=== PATIENT | male | born 1960 | race Caucasian/White ===

== ENCOUNTER 2022-06-17 21:44 | Emergency (ER) | payer SELFPAY ==
[~2022-06-17] VITALS: Ht 182.9 cm; Wt 94.6 kg
[2022-06-17 21:46] VITALS: BP 149/92
[2022-06-18] MEDS ORDERED: INDO-12 PO (23:46)
[2022-06-18] MEDS ORDERED: HYDR-3686 PO (23:46)
[2022-06-18] MEDS ORDERED: LISI20TA28 PO (23:46)
== END 2022-06-18 01:51 | disposition left against medical advice (07) ==
LOC: ER 21:46
DX: E11.65 Type 2 diabetes mellitus with hyperglycemia (principal); Z53.21 Procedure and treatment not carried out due to patient leaving prior to being seen by health care provider
CPT/HCPCS: 82948; 99281

== ENCOUNTER 2022-06-18 23:24 | Emergency (ER) | payer MEDICAID ==
[~2022-06-18] VITALS: Ht 182.9 cm; Wt 95.4 kg
[2022-06-18 23:33] VITALS: BP 135/87
[2022-06-18] MEDS ORDERED: LORazepam 1 MG tablet PO ONE (23:45)
[2022-06-18] MEDS ORDERED: ketorolac tromethamine 15mg/ml inj. IM ONE (23:45)
[2022-06-18] MEDS ORDERED: HYDR-3686 PO (23:46)
[2022-06-18] MEDS ORDERED: LISI20TA28 PO (23:46)
[2022-06-18] MEDS ORDERED: INDO-12 PO (23:46)
== END 2022-06-19 00:01 | disposition home or self-care (01) ==
LOC: ER 23:25
DX: F41.9 Anxiety disorder, unspecified (principal); I10 Essential (primary) hypertension; Z79.899 Other long term (current) drug therapy
CPT/HCPCS: 82948; 96372; 99283; J1885

== ENCOUNTER 2022-06-19 17:01 | Emergency (ER) | payer MEDICAID ==
[~2022-06-19] VITALS: Ht 188 cm; Wt 100.0 kg
[~2022-06-19 17:01] MED LIST: HYDR-3686 PO; INDO-12 PO; LISI20TA28 PO
[2022-06-19 17:18] VITALS: BP 145/101
[2022-06-19] MEDS ORDERED: LORazepam 1 MG tablet PO ONE (17:30)
== END 2022-06-19 18:15 | disposition home or self-care (01) ==
LOC: ER 17:01
DX: F41.9 Anxiety disorder, unspecified (principal); Z79.899 Other long term (current) drug therapy
CPT/HCPCS: 99281; 99283

== ENCOUNTER 2023-04-24 15:48 | Emergency (ER) | payer MEDICAID ==
[~2023-04-24] VITALS: Ht 182.9 cm; Wt 94.1 kg
[~2023-04-24 15:48] MED LIST changes: -HYDR-3686 PO; -LISI20TA28 PO
[2023-04-24 15:59] VITALS: BP 179/86; PULSE 92; O2SAT 96
[2023-04-24] MEDS ORDERED: INDO50CA96 PO (16:08)
[2023-04-24] MEDS ORDERED: COLC0.6C3 PO (16:08)
[2023-04-24] MEDS: dexamethasone sod phosphate 10mg/ml inj IM STA (16:21)
[2023-04-24 16:44] VITALS: RESP 18
[2023-04-24] MEDS: ketorolac tromethamine 15mg/ml inj. IM ONE (16:44)
== END 2023-04-24 17:17 | disposition home or self-care (01) ==
LOC: ER 15:48
DX: M10.9 Gout, unspecified (principal); Z88.8 Allergy status to other drugs, medicaments and biological substances; Z79.899 Other long term (current) drug therapy
CPT/HCPCS: 96372; 99284; J1100; J1885

== ENCOUNTER 2023-06-03 13:45 | Emergency (ER) | payer MEDICAID ==
[~2023-06-03] VITALS: Ht 182.9 cm; Wt 94.2 kg
[~2023-06-03 13:45] MED LIST changes: +COLC0.6C3 PO; +INDO50CA96 PO
[2023-06-03 13:46] VITALS: BP 123/92; PULSE 90; RESP 16; TEMP 98; O2SAT 97
[2023-06-03] MEDS ORDERED: AMOX-580 PO (16:07)
[2023-06-03] MEDS: amox tr/potassium clavulanate 875/125mg TAB PO ONE (16:18)
== END 2023-06-03 16:38 | disposition home or self-care (01) ==
LOC: ER 13:46
DX: J01.90 Acute sinusitis, unspecified (principal); H53.8 Other visual disturbances; H57.12 Ocular pain, left eye; Z88.8 Allergy status to other drugs, medicaments and biological substances; Z79.899 Other long term (current) drug therapy
CPT/HCPCS: 99283

== ENCOUNTER 2023-07-13 01:30 | Emergency (ER) | payer MEDICAID ==
[~2023-07-13] VITALS: Ht 182.9 cm; Wt 95.5 kg
[2023-07-13 01:48] VITALS: TEMP 97.9
[2023-07-13] MEDS ORDERED: INDO50CA96 PO (02:04)
[2023-07-13] MEDS ORDERED: COLC0.6T72 PO (02:04)
[2023-07-13] MEDS: colchicine 0.6mg tablet PO ONE (02:19)
[2023-07-13] MEDS: dexamethasone sod phosphate 10mg/ml inj IM STA (02:19)
[2023-07-13 02:22] VITALS: BP 134/97; PULSE 101; RESP 18; O2SAT 98
== END 2023-07-13 02:23 | disposition home or self-care (01) ==
LOC: ER 01:30
DX: Z79.899 Other long term (current) drug therapy (principal); M10.9 Gout, unspecified
CPT/HCPCS: 96372; 99283; J1100

== ENCOUNTER 2023-09-10 23:48 | Emergency (ER) | payer MEDICAID ==
[~2023-09-10] VITALS: Ht 182.9 cm; Wt 91.5 kg
[~2023-09-10 23:48] MED LIST changes: +COLC0.6T72 PO
[2023-09-11 00:07] VITALS: BP 153/89; PULSE 90; RESP 15; TEMP 98; O2SAT 98
[2023-09-11] MEDS ORDERED: INDO50CA96 PO (00:21)
[2023-09-11] MEDS ORDERED: HYDR-3965 PO (00:21)
[2023-09-11] MEDS ORDERED: COLC0.6C3 PO (00:22)
[2023-09-11] MEDS: insulin regular, human 10 units/0.1 ml syringe SQ ONE (00:50)
[2023-09-11] MEDS: methylPREDNISolone sod succ/PF 40mg inj. IM SCH (00:50)
== END 2023-09-11 00:59 | disposition home or self-care (01) ==
LOC: ER 23:48
DX: M10.9 Gout, unspecified (principal); Z79.899 Other long term (current) drug therapy
CPT/HCPCS: 82948; 96372; 99283; J2919

== ENCOUNTER 2024-01-29 03:59 | Emergency (ER) | payer MEDICAID ==
[~2024-01-29] VITALS: Ht 182.9 cm; Wt 91.8 kg
[2024-01-29 05:44] LABS: BASOPHILS # (AUTO) 0.1 X10'3 (0-0.2); BASOPHILS % (AUTO) 1.1 % (0-1); EOSINOPHILS # (AUTO) 0.4 X10'3 (0-0.9); EOSINOPHILS % (AUTO) 3.9 % (0-6); HEMATOCRIT 48.1 % (42.0-52.0); HEMOGLOBIN 16.5 g/dl (14.0-17.9); LYMPHOCYTES % (AUTO) 30.9 % (21-51); MEAN CORPUSCULAR HGB CONC 34.3 g/dL (33.0-36.5); MEAN CORPUSCULAR VOLUME 84.5 FL (78-98); MEAN PLATELET VOLUME 9.8 FL (7.4-10.4); MONOCYTES % (AUTO) 10.4 % (2-12); NEUTROPHILS # (AUTO) 5.2 X10'3 (1.8-7.7); NEUTROPHILS % (AUTO) 53.7 % (42-75); PLATELET COUNT 283 X10'3 (140-440); RED BLOOD COUNT 5.69 X10'6 (4.70-6.10); RED CELL DISTRIBUTION WIDTH 13.7 % (11.5-14.5); WHITE BLOOD COUNT 9.7 X10'3 (4.5-11.0)
[2024-01-29] MEDS ORDERED: amox tr/potassium clavulanate 875/125mg TAB PO ONE (05:45)
[2024-01-29 05:51] LABS: ALANINE AMINOTRANSFERASE 12 U/L (12-78); ALBUMIN/GLOBULIN RATIO 0.7 (1.1-1.5); ALKALINE PHOSPHATASE 121 IU/L (46-116); ANION GAP 7 (8-16); ASPARTATE AMINO TRANSFERASE 10 U/L (10-37); BILIRUBIN,TOTAL 0.8 MG/DL (0.1-1.0); BLOOD UREA NITROGEN 14 MG/DL (7-18); BUN/CREATININE RATIO 10.3 (10.0-20.0); CALCIUM 9.2 MG/DL (8.5-10.1); CHLORIDE 98 MMOL/L (99-107); CREATININE 1.36 MG/DL (0.60-1.10); GLUCOSE 388 MG/DL (70-104); POTASSIUM 3.9 MMOL/L (3.5-5.1); SODIUM 135 MMOL/L (135-145); TOTAL CARBON DIOXIDE 29.9 MMOL/L (24-32); TOTAL PROTEIN 7.4 G/DL (6.4-8.2); eCRCL 62 ML/MIN; eGFR 53 ML/MIN
[2024-01-29] MEDS ORDERED: AMOX-580 PO (05:54)
[2024-01-29] MEDS ORDERED: METF-1203 PO (05:54)
[2024-01-29] MEDS ORDERED: LISI10TA27 PO (05:58)
[2024-01-29 06:06] VITALS: BP 143/96; PULSE 99; RESP 16; TEMP 98.1; O2SAT 100
== END 2024-01-29 06:05 | disposition home or self-care (01) ==
LOC: ER 04:00
DX: E11.42 Type 2 diabetes mellitus with diabetic polyneuropathy (principal); E11.65 Type 2 diabetes mellitus with hyperglycemia; J32.9 Chronic sinusitis, unspecified; F12.90 Cannabis use, unspecified, uncomplicated; K21.9 Gastro-esophageal reflux disease without esophagitis
CPT/HCPCS: 80053; 82948; 85025; 99283

== ENCOUNTER 2024-04-18 00:55 | Emergency (ER) | payer MEDICAID ==
[~2024-04-18] VITALS: Ht 182.9 cm; Wt 91.4 kg
[~2024-04-18 00:55] MED LIST changes: +LISI10TA27 PO
[2024-04-18 00:58] VITALS: BP 152/99; PULSE 112; RESP 16; TEMP 98; O2SAT 100
[2024-04-18] MEDS ORDERED: OMEP40CA21 PO (01:51)
[2024-04-18] MEDS ORDERED: FLUT16SP2 BOTHNARES (01:51)
[2024-04-18] MEDS: pantoprazole 40mg Tablet.DR PO STA (02:15)
[2024-04-18] MEDS: ibuprofen tablet 400 MG TABLET PO ONE (02:15)
[2024-04-18] MEDS ORDERED: pantoprazole 40mg Tablet.DR PO SCH (07:30)
== END 2024-04-18 02:21 | disposition home or self-care (01) ==
LOC: ER 00:56
DX: K21.9 Gastro-esophageal reflux disease without esophagitis (principal); M10.9 Gout, unspecified; E11.9 Type 2 diabetes mellitus without complications; M19.90 Unspecified osteoarthritis, unspecified site; Z79.899 Other long term (current) drug therapy
CPT/HCPCS: 99283

== ENCOUNTER 2024-05-14 23:10 | Emergency (ER) | payer MEDICAID ==
[~2024-05-14] VITALS: Ht 182.9 cm; Wt 100.0 kg
[~2024-05-14 23:10] MED LIST changes: +FLUT16SP2 BOTHNARES; +OMEP40CA21 PO
[2024-05-15] MEDS: acetaminophen 325mg tablet PO ONE (02:46)
[2024-05-15] MEDS: ketorolac trometh 15mg/ml vial 15 MG/ML ML IM ONE (02:47)
[2024-05-15] MEDS ORDERED: COLC0.6C3 PO (02:51)
[2024-05-15] MEDS ORDERED: INDO50CA96 PO (02:51)
[2024-05-15] MEDS ORDERED: ACET-2615 PO (02:51)
[2024-05-15] MEDS: triamcinolone acetonide 40mg/ml inj IM ONE (02:57)
[2024-05-15 03:02] VITALS: BP 132/86; PULSE 80; RESP 18; TEMP 98.9; O2SAT 99
== END 2024-05-15 03:04 | disposition home or self-care (01) ==
LOC: ER 23:10
DX: M10.9 Gout, unspecified (principal); E11.9 Type 2 diabetes mellitus without complications; M19.90 Unspecified osteoarthritis, unspecified site; F12.90 Cannabis use, unspecified, uncomplicated
CPT/HCPCS: 96372; 99284; J1885; J3301

== ENCOUNTER 2024-07-30 11:41 | Emergency (ER) | payer MEDICAID ==
[~2024-07-30] VITALS: Ht 182.9 cm; Wt 71.9 kg
[~2024-07-30 11:41] MED LIST changes: -OMEP40CA21 PO
[2024-07-30 11:42] VITALS: TEMP 97.4
[2024-07-30 14:13] LABS: BASOPHILS # (AUTO) 0.1 X10'3 (0-0.2); EOSINOPHILS # (AUTO) 0.3 X10'3 (0-0.9); EOSINOPHILS % (AUTO) 4.1 % (0-6); HEMATOCRIT 51.8 % (42.0-52.0); HEMOGLOBIN 17.3 g/dl (14.0-17.9); LYMPHOCYTES # (AUTO) 2.2 X10'3 (1.1-4.8); LYMPHOCYTES % (AUTO) 27.8 % (21-51); MEAN CORPUSCULAR HEMOGLOBIN 28.2 PG (27.0-31.0); MEAN CORPUSCULAR HGB CONC 33.4 g/dL (33.0-36.5); MEAN CORPUSCULAR VOLUME 84.6 FL (78-98); MONOCYTES # (AUTO) 0.6 X10'3 (0-0.9); MONOCYTES % (AUTO) 7.9 % (2-12); NEUTROPHILS # (AUTO) 4.7 X10'3 (1.8-7.7); NEUTROPHILS % (AUTO) 59.2 % (42-75); PLATELET COUNT 274 X10'3 (140-440); RED BLOOD COUNT 6.12 X10'6 (4.70-6.10); RED CELL DISTRIBUTION WIDTH 14.7 % (11.5-14.5)
[2024-07-30 14:21] LABS: ALANINE AMINOTRANSFERASE 18 U/L (12-78); ALBUMIN 3.4 G/DL (3.4-5.0); ALBUMIN/GLOBULIN RATIO 0.8 (1.1-1.5); ALKALINE PHOSPHATASE 106 IU/L (46-116); ANION GAP 6 (8-16); ASPARTATE AMINO TRANSFERASE 11 U/L (10-37); BILIRUBIN,TOTAL 1.2 MG/DL (0.1-1.0); BLOOD UREA NITROGEN 13 MG/DL (7-18); BUN/CREATININE RATIO 11.4 (10.0-20.0); CALCIUM 8.6 MG/DL (8.5-10.1); CHLORIDE 102 MMOL/L (99-107); CREATININE 1.14 MG/DL (0.60-1.10); GLUCOSE 251 MG/DL (70-104); POTASSIUM 4.5 MMOL/L (3.5-5.1); SODIUM 136 MMOL/L (135-145); TOTAL CARBON DIOXIDE 28.3 MMOL/L (24-32); TOTAL PROTEIN 7.7 G/DL (6.4-8.2); eCRCL 67 ML/MIN; eGFR 65 ML/MIN
--- NOTE | 2024-07-30 14:25 | RADIOLOGY REPORT ---
CLINICAL INDICATION: Pain; Infection TECHNIQUE: 1 radiographic views of the left tibia/fibula were obtained. Comparison: None FINDINGS/IMPRESSION: There is no evidence of acute fracture or dislocation. The visualized joint space is well maintained. The alignment is anatomical. There is no radiopaque foreign body.
--- NOTE | 2024-07-30 14:32 | Physician Documentation ---
History of Present Illness General Chief Complaint: Wound Stated Complaint: LEG INFECTION X1 YEAR Time Seen by MD: 13:50 Primary Medical Doctor: maricel History of Present Illness Initial Comments 64-year-old male with known history of diabetes presents to the emergency department for evaluation of left lower leg wound that he has had for one year. Reports he has not had physician primary care follow up for some time and does not take any medications for his diabetes. Believes his blood sugar to be 282. No polyuria, polydipsia or fevers reported. The lower leg lesion has a proximally 1/2 cm x 1-1/2 cm ulceration with purulent discharge. There was no lymphangitis. No difficulty with dorsiflexion and plantar flexion. Medication Reconciliation Allergies: Coded Allergies: No Known Allergies (Unverified , 05/14/24) Scheduled Cephalexin*Monohydrate* (Keflex*), 1 CAP PO TID Colchicine (Colchicine), 1 CAP PO Q12H Colchicine (Colchicine), 1 TAB PO DAILY Colchicine (Colchicine), 1 CAP PO DAILY Colchicine (Colchicine), 1 CAP PO Q12H Fluticasone Propionate (Flonase), 2 SPRAYS BOTHNARES DAILY Indomethacin (Indomethacin), 1 CAP PO Q8H Indomethacin (Indomethacin), 1 CAP PO Q8H Indomethacin (Indomethacin), 1 CAP PO Q8H Indomethacin (Indomethacin), 1 CAP PO Q8H Indomethacin (Indomethacin), 1 CAP PO Q8H Lisinopril (Lisinopril), 1 TAB PO DAILY Sulfamethoxazole/Trimethoprim (Bactrim Ds Tablet), 1 TAB PO Q12H Past Medical History Past Medical History: Diabetes, Arthritis, Gout Past Surgical History: no surgical history Smoking: Non-Smoker Drug Use: marijuana Lives In: Home Review of Systems All Other Systems at this time: Reviewed and Negative Constitutional: Denies: fever, chills Integ: Reports: lesions Integumentary Left lower leg Physical Exam Physical Exam Vital Signs: RN Vital Signs have been reviewed: Yes, Temperature: 97.4, Source: Temporal, Heart Rate: 77, Respiratory Rate: 12, BP: 134/83, Pulse Oximetry: 98, Weight: 71.900 Oxygen Flow Rate: 0 General Appearance: alert, WD/WN, mild distress Head: normal inspection Face: normal inspection Pupils/EOM/Fundus: PERRLA Respiratory: no respiratory distress Chest: no accessory muscle use, accessory muscle use Cardiovascular: regular rate, rhythm Back: normal inspection Extremities: non-tender Neurologic: oriented x4, tourist home keeper II-XII nml as tested Motor / Sensory: no motor deficit Skin: normal color Skin 1-1/2 and a half ulceration to the anterior distal tibia with mild erythema and purulent discharge Lymphatic: no adenopathy Progress Results/Orders Results/Orders Orders - BLAKE MILLER PAC Tib/Fib (07/30/24 14:11) * Additional Wound Care Orders (07/30/24 13:58) Completed Orders - BLAKE MILLER PAC Cbc/Diff (07/30/24 13:58) CMP (07/30/24 13:58) Tib/Fib (07/30/24 14:11) Vital Signs 07/30/24 07/30/24 11:42 13:47 Temp 97.4 Pulse 84 77 Resp 15 12 B/P (MAP) 129/96 134/83 (100) Pulse Ox 99 98 O2 Flow Rate 0 Laboratory Tests Test 07/30/24 13:43 07/30/24 13:44 Glucometer 282 H White Blood Count 8.0 Red Blood Count 6.12 H Hemoglobin 17.3 Hematocrit 51.8 Mean Corpuscular Volume 84.6 Mean Corpuscular Hemoglobin 28.2 Mean Corpuscular Hemoglobin Concent 33.4 Red Cell Distribution Width 14.7 H Platelet Count 274 Mean Platelet Volume 10.0 Neutrophils (%) (Auto) 59.2 Lymphocytes (%) (Auto) 27.8 Monocytes (%) (Auto) 7.9 Eosinophils (%) (Auto) 4.1 Basophils (%) (Auto) 1.0 Neutrophils # (Auto) 4.7 Lymphocytes # (Auto) 2.2 Monocytes # (Auto) 0.6 Eosinophils # (Auto) 0.3 Basophils # (Auto) 0.1 CBC Comment Sodium Level 136 Potassium Level 4.5 Chloride Level 102 Carbon Dioxide Level 28.3 Anion Gap 6 L Blood Urea Nitrogen 13 Creatinine 1.14 H Estimated GFR/1.73 m2 65 BUN/Creatinine Ratio 11.4 Glucose Level 251 H Calcium Level 8.6 Total Bilirubin 1.2 H Aspartate Amino Transf (AST/SGOT) 11 Alanine Aminotransferase (ALT/SGPT) 18 Alkaline Phosphatase 106 Total Protein 7.7 Albumin 3.4 Globulin 4.3 Albumin/Globulin Ratio 0.8 L Chemistry Comments Medical Decision Making Differential Diagnosis 64-year-old noncompliant diabetic with lower leg diabetic ulcer requires x-ray imaging to evaluate for gas, foreign body or osteomyelitis. Laboratory screening. Plan is to set patient up with outpatient and follow up for his diabetes. Begin on metformin and provide antibiotic coverage. He will be given wound care dressing instructions. Departure Disposition: HOME / SELF CARE / HOMELESS Impression: Primary Impression: Diabetic ulcer of lower extremity Condition: Stable Discharge Instructions: How to Change Your Wound Dressing Additional Instructions: Today in the emergency department you had x-rays obtained which were reassuring. Please begin antibiotics as directed and diabetic medication. Make follow up appointment with the [facility] for further diabetic management. Do dressing changes as instructed. Referrals: NO PRIMARY CARE PROVIDER (PCP) Prescriptions Metformin Hcl (METFORMIN HCL) 500 Mg Tablet 1 TAB PO Q12H for 30 Days, #60 TAB 0 Refills Prov: BLAKE MILLER 07/30/24 Cephalexin*Monohydrate* (Keflex*) 500 Mg Capsule 1 CAP PO TID, #30 CAP Prov: BLAKE MILLER 07/30/24 Sulfamethoxazole/Trimethoprim (Bactrim Ds Tablet) 800 Mg-160 Mg Tablet 1 TAB PO Q12H for 10 Days, #20 TAB Prov: BLAKE MILLER 07/30/24 Education Educated: Patient Educated regarding: diagnosis, treatment Signature Scribe Signature: . Attestation: BLAKE RAMIREZ Jul 30, 2024 14:32
[2024-07-30] MEDS ORDERED: CEPH-585 PO (14:36)
[2024-07-30] MEDS ORDERED: SULF1TAB49 PO (14:36)
[2024-07-30] MEDS ORDERED: METF-436 PO (14:55)
[2024-07-30 15:29] VITALS: BP 164/99; PULSE 96; RESP 20; O2SAT 99
== END 2024-07-30 15:43 | disposition home or self-care (01) ==
LOC: ER 11:41
DX: E11.622 Type 2 diabetes mellitus with other skin ulcer (principal); L97.929 Non-pressure chronic ulcer of unspecified part of left lower leg with unspecified severity; M19.90 Unspecified osteoarthritis, unspecified site; F12.90 Cannabis use, unspecified, uncomplicated; Z79.899 Other long term (current) drug therapy
CPT/HCPCS: 36415; 73590; 80053; 82948; 85025; 87070; 87077; 87186; 99284; A6449

== ENCOUNTER 2024-10-20 01:04 | Emergency (ER) | payer MEDICAID ==
[~2024-10-20] VITALS: Ht 182.9 cm; Wt 90.9 kg
[~2024-10-20 01:04] MED LIST changes: +CEPH-585 PO; +METF-436 PO
[2024-10-20 01:14] VITALS: BP 132/91; PULSE 90; RESP 20; TEMP 97.9; O2SAT 99
== END 2024-10-20 02:57 | disposition left against medical advice (07) ==
LOC: ER 01:04
DX: F41.9 Anxiety disorder, unspecified (principal); Z53.21 Procedure and treatment not carried out due to patient leaving prior to being seen by health care provider

== ENCOUNTER 2024-11-21 04:33 | Emergency (ER) | payer MEDICAID ==
[~2024-11-21] VITALS: Ht 182.9 cm; Wt 85.0 kg
[2024-11-21 04:34] VITALS: TEMP 97
[2024-11-21] MEDS ORDERED: INDO-12 PO (05:14)
[2024-11-21] MEDS ORDERED: COLC0.6C3 PO (05:14)
[2024-11-21] MEDS ORDERED: IBUP-1984 PO (05:14)
--- NOTE | 2024-11-21 05:15 | Physician Documentation ---
History of Present Illness ~ Chief Complaint: Hand pain Stated Complaint: GOUT Time Seen by MD: 05:07 Primary Medical Doctor: maricel ADAMS Patient presents to the emergency room with reported gout flare to his left hand and wrist. History of gout and states this feels similar. He ran out of his indomethacin. No fevers or traumas reported. Tetanus within 5 years: No Medication Reconciliation Allergies: Coded Allergies: No Known Allergies (Unverified , 11/21/24) Scheduled Cephalexin*Monohydrate* (Keflex*), 1 CAP PO TID Colchicine (Colchicine), 1 CAP PO Q12H Colchicine (Colchicine), 1 TAB PO DAILY Colchicine (Colchicine), 1 CAP PO DAILY Colchicine (Colchicine), 1 CAP PO Q12H Fluticasone Propionate (Flonase), 2 SPRAYS BOTHNARES DAILY Indomethacin (Indomethacin), 1 CAP PO Q8H Indomethacin (Indomethacin), 1 CAP PO Q8H Indomethacin (Indomethacin), 1 CAP PO Q8H Indomethacin (Indomethacin), 1 CAP PO Q8H Indomethacin (Indomethacin), 1 CAP PO Q8H Lisinopril (Lisinopril), 1 TAB PO DAILY Metformin Hcl (Metformin Hcl), 1 TAB PO Q12H Past Medical History Past Medical History: Diabetes, Arthritis, Gout Past Surgical History: no surgical history Drug Use: marijuana Lives In: Home Review of Systems ROS All review of systems negative except as per HPI Physical Exam Vital Signs: Temperature: 97.0, Heart Rate: 96, Respiratory Rate: 16, BP: 147/95, Pulse Oximetry: 96, Weight: 85.000 Oxygen Flow Rate: 0 Physical Exam General: Patient is awake, alert, oriented x4 in no acute distress Head: Normocephalic and atraumatic. Eyes: Conjunctival normal. EOMI. PERRL. ENT: Mucous membranes moist. Neck: Supple, trachea is midline. Chest: Clear to auscultation bilaterally without rales, rhonchi, or wheezes. There is no accessory muscle use or retractions. Cardiac: RRR without murmurs, gallops, or rubs. Extremities: Swelling and pain to patient's left hand centered around the 5th digit at the MP joint Progress Results/Orders Results/Orders Vital Signs 11/21/24 11/21/24 04:34 04:42 Temp 97.0 Pulse 100 96 Resp 18 16 B/P (MAP) 155/106 147/95 (112) Pulse Ox 97 96 O2 Flow Rate 0 0 Medical Decision Making Findings Patient presents to the emergency room with reported gout flare. Differentials did include fractures, cellulitis, septic arthritis however given patient's reported history he had not feel emergent labs or imaging is necessary. We will treat for gout. Departure Disposition: HOME / SELF CARE / HOMELESS Impression: Primary Impression: Gout attack Condition: Stable Discharge Instructions: Gout Referrals: NO PRIMARY CARE PROVIDER (PCP) Prescriptions Colchicine (Colchicine) 0.6 Mg Capsule 1 CAP PO DAILY for 30 Days, #30 CAP 0 Refills Prov: DANTE WEEMS MD 11/21/24 Indomethacin (Indomethacin) 25 Mg Capsule 1 CAP PO Q8H for arthritis for 30 Days, #90 CAP 0 Refills with food Prov: DANTE WEEMS MD 11/21/24 Ibuprofen* (Motrin*) 400 Mg Tablet 800 MG PO Q8H, #30 TAB Prov: DANTE WEEMS MD 11/21/24 Signature Scribe Signature: No scribe Attestation: The note accurately reflects work and decisions made by me.Dante Weems MD 11/21/24 05:14 DANTE WEEMS MD Nov 21, 2024 05:15
[2024-11-21 05:28] VITALS: BP 132/87; PULSE 82; O2SAT 95
[2024-11-21] MEDS: HYDROcodone/acetaminophen 5mg/325mg tablet PO ONE (05:42)
[2024-11-21 05:48] VITALS: RESP 16
[2024-11-21] MEDS: ketorolac trometh 15mg/ml vial 15 MG/ML ML IM ONE (05:48)
== END 2024-11-21 05:53 | disposition home or self-care (01) ==
LOC: ER 04:33
DX: M10.9 Gout, unspecified (principal); E11.9 Type 2 diabetes mellitus without complications; M19.90 Unspecified osteoarthritis, unspecified site; F12.90 Cannabis use, unspecified, uncomplicated
CPT/HCPCS: 96372; 99283; J1885

== ENCOUNTER 2024-12-16 23:41 | Emergency (ER) | payer MEDICAID ==
[~2024-12-16] VITALS: Ht 182.9 cm; Wt 89.7 kg
[~2024-12-16 23:41] MED LIST changes: -COLC0.6T72 PO; +COLC0.6T78 PO; +IBUP-1984 PO
[2024-12-16 23:47] VITALS: BP 107/82; PULSE 92; TEMP 97.8; O2SAT 98
--- NOTE | 2024-12-17 01:09 | Physician Documentation ---
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 Tetanus within 5 years: No Medication Reconciliation Allergies: Coded Allergies: No Known Allergies (Unverified , 11/21/24) Scheduled Cephalexin*Monohydrate* (Keflex*), 1 CAP PO TID Colchicine (Colchicine), 1 CAP PO Q12H Colchicine (Colchicine), 1 TAB PO DAILY Colchicine (Colchicine), 1 CAP PO DAILY Colchicine (Colchicine), 1 CAP PO Q12H Colchicine (Colchicine), 1 CAP PO DAILY Fluticasone Propionate (Flonase), 2 SPRAYS BOTHNARES DAILY Ibuprofen* (Motrin*), 800 MG PO Q8H Indomethacin (Indomethacin), 1 CAP PO Q8H Indomethacin (Indomethacin), 1 CAP PO Q8H Indomethacin (Indomethacin), 1 CAP PO Q8H Indomethacin (Indomethacin), 1 CAP PO Q8H Indomethacin (Indomethacin), 1 CAP PO Q8H Indomethacin (Indomethacin), 1 CAP PO Q8H Lisinopril (Lisinopril), 1 TAB PO DAILY Metformin Hcl (Metformin Hcl), 1 TAB PO Q12H Past Medical History Past Medical History: Diabetes, Arthritis, Gout Past Surgical History: no surgical history Drug Use: marijuana Lives In: Home Review of Systems All Other Systems at this time: Reviewed and Negative Physical Exam Vital Signs: RN Vital Signs have been reviewed: Yes, Temperature: 97.8, Source: Temporal, Heart Rate: 92, Respiratory Rate: 18, BP: 107/82, Pulse Oximetry: 98, Weight: 89.700 Oxygen Flow Rate: 0 Physical Exam HEENT: PERRL, moist oral mucosa, EOMI Pulmonary: No respiratory distress MSK: no deformity L wrist +warm +erythematous +ttp =swollen Skin: w/d/i, no rash Neuro: alert, nonfocal Psych: normal affect Progress Results/Orders Results/Orders Orders - BONG HERNANDES MD Colchicine Tablet (Colchicine Tablet) (12/17/24 01:05) Colchicine Tablet (Colchicine Tablet) (12/17/24 01:05) Vital Signs 12/16/24 23:47 Temp 97.8 Pulse 92 Resp 18 B/P (MAP) 107/82 Pulse Ox 98 O2 Flow Rate 0 Medical Decision Making Additional information obtaine: N/A Findings gout flare. colchicine dosing here and dispensed. advised to fill at pharmacy as already prescribed General Diff Dx:Considerations: Include: Other Shoulder Diff Dx:Consideration: Include: Other Elbow Diff Dx:Considerations: Include: Other Wrist Diff Dx:Considerations: Include: Other Hand Diff Dx:Considerations: Include: Other Finger Diff Dx:Considerations: Include: Other Additional Comment Ddx = gout, septic arthritis, osteoarthritis, sprain Departure Disposition: 01 HOME / SELF CARE / HOMELESS Impression: Primary Impression: Gout attack Condition: Stable Discharge Instructions: Gout Referrals: NO PRIMARY CARE PROVIDER (PCP) Education Educated: Patient Educated regarding: diagnosis, treatment, prognosis, need for follow up Signature Scribe Signature: . Attestation: . BONG HERNANDES MD Dec 17, 2024 01:08
[2024-12-17 01:38] VITALS: RESP 18
== END 2024-12-17 01:44 | disposition home or self-care (01) ==
LOC: ER 23:42
DX: M10.9 Gout, unspecified (principal); E11.9 Type 2 diabetes mellitus without complications; F12.90 Cannabis use, unspecified, uncomplicated; M19.90 Unspecified osteoarthritis, unspecified site; Z79.899 Other long term (current) drug therapy
CPT/HCPCS: 99284

== ENCOUNTER 2025-01-08 08:25 | Emergency (ER) | payer MEDICAID ==
[~2025-01-08] VITALS: Ht 182.9 cm; Wt 88.7 kg
[~2025-01-08 08:25] MED LIST changes: -IBUP-1984 PO
[2025-01-08 08:31] VITALS: BP 156/70; PULSE 90; RESP 16; TEMP 97.6; O2SAT 98
--- NOTE | 2025-01-08 09:50 | Physician Documentation ---
History of Present Illness ~ Chief Complaint: Wrist pain Stated Complaint: ARTHRITIS Time Seen by MD: 08:31 Primary Medical Doctor: maricel HPI 64-year-old male presents to the ED with ongoing left wrist pain which he has been previously evaluated for. 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 Patient has swelling decreased range of motion of the left wrist no fevers. She does have a history of gout. Denies any acute injury Tetanus within 5 years: No Medication Reconciliation Allergies: Coded Allergies: No Known Allergies (Unverified , 01/08/25) Scheduled Cephalexin*Monohydrate* (Keflex*), 1 CAP PO TID Colchicine (Colchicine), 1 CAP PO Q12H Colchicine (Colchicine), 1 TAB PO DAILY Colchicine (Colchicine), 1 CAP PO DAILY Colchicine (Colchicine), 1 CAP PO Q12H Colchicine (Colchicine), 1 CAP PO DAILY Fluticasone Propionate (Flonase), 2 SPRAYS BOTHNARES DAILY Indomethacin (Indomethacin), 1 CAP PO Q8H Indomethacin (Indomethacin), 1 CAP PO Q8H Indomethacin (Indomethacin), 1 CAP PO Q8H Indomethacin (Indomethacin), 1 CAP PO Q8H Indomethacin (Indomethacin), 1 CAP PO Q8H Indomethacin (Indomethacin), 1 CAP PO Q8H Lisinopril (Lisinopril), 1 TAB PO DAILY Metformin Hcl (Metformin Hcl), 1 TAB PO Q12H Prednisone (Prednisone), 1 TAB PO BID Past Medical History Past Medical History: Diabetes, Arthritis, Gout Past Surgical History: no surgical history Drug Use: marijuana Lives In: Home Review of Systems All Other Systems at this time: Reviewed and Negative ROS As stated above in the HPI, otherwise all systems are reviewed and negative. Physical Exam Vital Signs: Temperature: 97.6, Source: Temporal, Heart Rate: 90, Respiratory Rate: 16, BP: 156/70, Pulse Oximetry: 98, Weight: 88.700 Oxygen Flow Rate: 0 Physical Exam General: Alert, no apparent distress. Extremities: Normal range of motion, no deformity. Mild swelling left wrist warm to touch no erythema Neurologic: Oriented x4. Psychiatric: Normal mood and affect. Skin: Normal color, warm and dry. No edema, no ecchymosis. Progress Results/Orders Results/Orders Vital Signs 01/08/25 08:31 Temp 97.6 Pulse 90 Resp 16 B/P (MAP) 156/70 Pulse Ox 98 O2 Flow Rate 0 Medical Decision Making Additional information obtaine: old records Findings I advised the patient to pickup driver the previously prescribed colchicine. However based on his current presentation I am going to give him a short dose of prednisone to help with the pain and inflammation General Diff Dx:Considerations: Unlikely: Abrasion, Contusion, Fracture, Hematoma, Laceration, Malunion, Neurovascular injury, Open fracture, Sprain, Ulc er, Other Shoulder Diff Dx:Consideration: Unlikely: AC separation, Adhesive capsulitis, Arthritis, Bicipital tendonitis, Calcific tendonitis, Cervical disc disease, Contusion, Dislocation, Fracture-humerus, Fracture-scapula, Fracture-clavicle, GB disease, Hematoma, Impingement syndrome, Myocardial infarction, Neurovascular injury, Open fracture-humerus, Open fracture-scapula, Open fracture-clavicle, Rotator cuff injury, SC dislocatoin, Sprain, Subacromial bursitis, Other Elbow Diff Dx:Considerations: Unlikely: Abrasion, Arthritis, Contustion, DJD, Fracture-humerus, Fracture-radial head, Fracture-radius, Fracture-ulna, Gout, Hematoma, Laceration, Neurovascular injury, Olecranon bursitis, Open fracture, Osteomyelitis, Radial head subluxation, Rheumatoid arthritis, Septic, Sprain, Ulcer, Other Wrist Diff Dx:Considerations: Include: Abrasion, Arthritis, DJD, Gout, Rheumatoid, Septic, Carpal tunnel snydrome, Contusion, Dislocation, Fracture- carpal, Fracture-radius, Fracture-ulna, Ganglion, Laceration, Neurovascular injury, Open fracture, Strain, Other Hand Diff Dx:Considerations: Unlikely: Abrasion, Arthritis, Contusion, DJD, Felon, Fracture-carpal, Fracture-metacarpal, Fracture-phalynx, Fracture-radius, Fracture-ulna, Gout, Hematoma, Herpetic vicente, Laceration, Neurovascular injury, Open fracture, Paronychia, Rheumatoid arthritis, Septic, Sprain, Subungual hematoma, Tenosynovitis, Volar plate injury, Cellulitis, Malunion, Other Finger Diff Dx:Considerations: Unlikely: Abrasion, Cellulitis, Contusion, Dislocation, Fracture, Hematoma, Laceration, Neurovascular injury, Open fracture, Subungual hematoma, Other Departure Disposition: 01 HOME / SELF CARE / HOMELESS Impression: Primary Impression: Wrist joint pain Condition: Improved Discharge Instructions: Gout, [id number] Referrals: NO PRIMARY CARE PROVIDER (PCP) Prescriptions Prednisone (Prednisone) 10 Mg Tablet 1 TAB PO BID for 5 Days, #10 TAB Prov: MIGUELITO MALONE NP 01/08/25 Education Educated: Patient Educated regarding: diagnosis Signature Scribe Signature: t Attestation: Scribed for Miguelito Malone Journeyman Carpenter by Miguelito Medley NP . 01/08/25 18:15 MIGUELITO MALONE NP Jan 08, 2025 09:50
[2025-01-08] MEDS ORDERED: PRED10TA23 PO (09:52)
== END 2025-01-08 10:51 | disposition home or self-care (01) ==
LOC: ER 08:26
DX: M25.532 Pain in left wrist (principal); E11.9 Type 2 diabetes mellitus without complications; M19.90 Unspecified osteoarthritis, unspecified site; F12.90 Cannabis use, unspecified, uncomplicated; Z79.899 Other long term (current) drug therapy
CPT/HCPCS: 99283

== ENCOUNTER 2025-01-16 18:30 | Emergency (ER) | payer MEDICAID ==
[~2025-01-16] VITALS: Ht 182.9 cm; Wt 89.0 kg
[2025-01-16 18:52] VITALS: BP 116/113; PULSE 102; RESP 15; O2SAT 97
--- NOTE | 2025-01-16 19:02 | Physician Documentation ---
History of Present Illness ~ Chief Complaint: Foot pain Stated Complaint: FOOT PAIN Time Seen by MD: 20:05 Primary Medical Doctor: maricel HPI 64-year-old male who presents to the emergency department with complaints of acute gouty flare to both lower extremities and upper extremities. Has known past medical history of gout. He has seen and evaluated in triage. MSE complete. Tetanus witin 5 years: No Medication Reconciliation Allergies: Coded Allergies: No Known Allergies (Unverified , 01/16/25) Scheduled Cephalexin*Monohydrate* (Keflex*), 1 CAP PO TID Colchicine (Colchicine), 1 CAP PO Q12H Colchicine (Colchicine), 1 TAB PO DAILY Colchicine (Colchicine), 1 CAP PO DAILY Colchicine (Colchicine), 1 CAP PO Q12H Colchicine (Colchicine), 1 CAP PO DAILY Fluticasone Propionate (Flonase), 2 SPRAYS BOTHNARES DAILY Indomethacin (Indomethacin), 1 CAP PO Q8H Indomethacin (Indomethacin), 1 CAP PO Q8H Indomethacin (Indomethacin), 1 CAP PO Q8H Indomethacin (Indomethacin), 1 CAP PO Q8H Indomethacin (Indomethacin), 1 CAP PO Q8H Indomethacin (Indomethacin), 1 CAP PO Q8H Lisinopril (Lisinopril), 1 TAB PO DAILY Metformin Hcl (Metformin Hcl), 1 TAB PO Q12H Discontinued Medications Prednisone (Prednisone), 1 TAB PO BID Discontinued Reason: Auto Discontinued Past Medical History Past Medical History: Diabetes, Arthritis, Gout Past Surgical History: no surgical history Drug Use: marijuana Lives In: Home Review of Systems All Other Systems at this time: Reviewed and Negative ROS As stated above in the HPI, otherwise all systems are reviewed and negative. Physical Exam Vital Signs: Temperature: 96.8, Source: Temporal, Heart Rate: 102, Respiratory Rate: 15, BP: 116/113, Pulse Oximetry: 97, Weight: 89.000 Physical Exam General: Alert, no apparent distress. HEENT: PERRL, EOMI, no injection, moist mucous membranes. Neck: Full range of motion. Respiratory: Lungs clear, no respiratory distress. Chest: No accessory muscle use. Cardiovascular: Regular rate and rhythm, no murmurs. Gastrointestinal: Soft, nontender, nondistended. Bowels sounds present. Extremities: Normal range of motion, no deformity. Neurologic: Oriented x4. Psychiatric: Normal mood and affect. Skin: Normal color, warm and dry. No edema, no ecchymosis. Progress Results/Orders Results/Orders Completed Orders - MIGUELITO MALONE WELDING MACHINE OPERATOR ELECTROSLAG Ketorolac Trometh 30mg/Ml Vial (Toradol (01/16/25 20:25) Indomethacin Capsule (Indocin Capsule) (01/17/25 08:30) Vital Signs 01/16/25 01/16/25 18:52 20:36 Temp 96.8 96.8 Pulse 102 Resp 15 B/P (MAP) 116/113 Pulse Ox 97 Medical Decision Making Additional information obtaine: N/A Findings Medical screening examination for 64-year-old male with acute gouty flare. Hemodynamically stable. Patient understands he is awaiting ER bed availability for comprehensive evaluation and management. General Diff Dx:Considerations: Unlikely: Abrasion, Contusion, Fracture, Hematoma, Laceration, Malunion, Neurovascular injury, Open fracture, Sprain, Ulcer, Other Knee Diff Dx:Considerations: Unlikely: Abrasion, Arthritis, Contusion, DJD, Fracture-femur, Fracture-fibula, Fracture-patella, Fracture-tibia, Gout, Hematoma, Laceration, Meniscus injury, Neurovascular injury, Open fracture, Rheu matoid arthritis, Septic, Sprain, Sprain-MCL, Sprain-LCL, Sprain-ACL, Sprain- PCL, Other Ankle Diff Dx:Considerations: Unlikely: Abrasion, Arthritis, Contusion, DJD, Fracture-metatarsal, Fracture-fibula, Fracture-tarsal, Fracture-tibia, Gout, Hematoma, Laceration, Malunion, Neurovascular injury, Nonunion, Open fracture, Osteomyelitis, Rheumatoid arthritis, Sprain, Septic, Ulcer, Other Foot Diff Dx:Considerations: Include: Abrasion, Arthritis, Cellulitis, Contusion, Dislocation, DJD, Fracture-metatarsal, Fracture-phalynx, Fracture- tarsal, Gout, Hematoma, Ingrown toenail, Laceration, Malunion, Neurovascular injury, Open fracture, Paronychia, Puncture, Rheumatoid, Sprain, Septic, Subungual hematoma, Ulcer, Other Toe Diff Dx:Considerations: Unlikely: Abrasion, Cellulitis, Contusion, Dislocation, Felon, Fracture, Hematoma, Laceration, Neurovascular injury, Open fracture, Paronychia, Subungual hematoma, Other Departure Disposition: 01 HOME / SELF CARE / HOMELESS Impression: Primary Impression: Foot pain Discharge Instructions: Sprains Referrals: NO PRIMARY CARE PROVIDER (PCP) Signature Scribe Signature: t Attestation: Scribed for Miguelito Malone Revenue Stamp Cutter by Miguelito Medley NP . 01/16/25 23:05 BLAKE MILLER PAC Jan 16, 2025 19:02 MIGUELITO MALONE NP Jan 16, 2025 20:21
[2025-01-16] MEDS ORDERED: ketorolac trometh 30MG/ML vial 30 MG/ML VIAL IM ONE (20:25)
[2025-01-16 20:36] VITALS: TEMP 96.8
== END 2025-01-16 21:21 | disposition home or self-care (01) ==
LOC: ER 18:31
DX: M79.672 Pain in left foot (principal); M79.671 Pain in right foot; E11.9 Type 2 diabetes mellitus without complications; F12.90 Cannabis use, unspecified, uncomplicated
CPT/HCPCS: 99282